=== PATIENT | male | born 1985 | race Asian ===

== ENCOUNTER 2017-04-23 21:33 | Observation (INO) | payer BC ==
[~2017-04-23] VITALS: Ht 162.6 cm; Wt 70.0 kg
[2017-04-23] MEDS ORDERED: ONDANSETRON 8 MG/54 ML D5W IV STA (21:56)
--- NOTE | 2017-04-23 21:58 | EMERGENCY ROOM VISIT NOTE ---
History Report prepared by Veronique: Edwin Cuadra Under the Supervision of: Radha JohnsonO. First contact with patient: 21:40 Chief Complaint: ABDOMINAL PAIN Stated Complaint: ABD PAIN History of Present Illness The patient is a 31 year old male who presents to the Emergency Room with complaints of worsening abdominal pain that started at 1540. He rates his pain as a 10/10 in severity. The patient states that he drank cold water this afternoon and started to experience medial abdominal pain. The patient states that he experienced one episode of vomiting and diarrhea. He states that he noticed blood in the water after he had a bowel movement. The patient states that he did not have dinner because he has not appetite from the pain. He states that he had similar symptoms two years ago. The patient states that he was given pain medication but is unsure what his diagnosis was. The patient denies back pain, fevers, chills, a history of bowel problems, taking medication , abdominal surgery, eating new food, sick contact, and recent travel. Source of History: patient Onset: 1540 Position: abdomen Symptom Intensity: 10/10 Timing: worsening Associated Symptoms: + vomiting, + hematochezia, + diarrhea, No fevers, No chills, No back pain Review of Systems See HPI for pertinent positives & negatives. A total of 10 systems reviewed and were otherwise negative. Past Medical & Surgical The patient reports no pertinent medical or surgical history. Family History Patient reports no known family medical history. Social History Smoking Status: Never Smoker Marital Status: Housing Status: lives with family Occupation Status: employed Current/Historical Medications No Active Prescriptions or Reported Meds Allergies Coded Allergies: No Known Allergies (Unverified , 04/23/17) Physical Exam Vital Signs Date Time Temp Pulse Resp B/P (MAP) Pulse Ox O2 Delivery O2 Flow Rate FiO2 04/24/17 00:16 74 20 112/63 98 Room Air 04/23/17 22:32 37.5 04/23/17 21:35 36.8 79 20 116/65 97 Room Air Physical Exam GENERAL: alert, well appearing, well nourished, no distress, non-toxic EYE EXAM: normal conjunctiva, PERRL and EOM's grossly intact OROPHARYNX: no exudate, no erythema, lips, buccal mucosa, and tongue normal and mucous membranes are moist NECK: supple, no nuchal rigidity, no adenopathy, non-tender LUNGS: Clear to auscultation. Normal chest wall mechanics HEART: no murmurs, S1 normal and S2 normal ABDOMEN: abdomen soft, generalized abdominal discomfort, normo-active bowel sounds, no masses, no rebound or guarding. BACK: Back is symmetrical on inspection and there is no deformity, no midline tenderness, no CVA tenderness. SKIN: no rashes and no bruising UPPER EXTREMITIES: upper extremities are grossly normal. LOWER EXTREMITIES: No pitting edema. NEURO EXAM: Normal sensorium, cranial nerves II-XII grossly intact, normal speech, no gross weakness of arms, no gross weakness of legs. Gross sensation intact. Medical Decision & Procedures ER Provider Diagnostic Interpretation: CT:Per my review, radiologist interpretation. ABDOMEN AND PELVIS CT WITHOUT CONTRAST CT DOSE: 297.13 mGy.cm HISTORY: Right lower quadrant abdominal pain. Vomiting. TECHNIQUE: Multiaxial CT images of the abdomen and pelvis were performed without contrast. A dose lowering technique was utilized adhering to the principles of ALARA. COMPARISON STUDY: None. FINDINGS: Suboptimal evaluation for bowel pathology due to the lack of intravenous and oral contrast. However, there is no evidence for bowel obstruction. The appendix is identified within the right lower quadrant on images 286 through 305. The mid to distal appendix is fluid-filled and distended up to 9 mm. There is minimal periappendiceal fat stranding. Therefore, this is consistent with acute appendicitis. The lung bases are clear. No pneumoperitoneum. No pneumatosis. No evidence for periappendiceal abscess. The unenhanced liver, gallbladder, pancreas, adrenal glands, and kidneys are unremarkable. No retroperitoneal lymphadenopathy. IMPRESSION: Above findings consistent with acute appendicitis. No perforation or abscess identified. Electronically signed by: Michael Quevedo M.D. 04/23/2017 11:11 PM Dictated Date/Time: 04/23/2017 11:05 PM Laboratory Results 04/23/17 22:10 Red Blood Count 5.36, Mean Corpuscular Volume 91.0, Mean Corpuscular Hemoglobin 29.9, Mean Corpuscular Hemoglobin Concent 32.8, Mean Platelet Volume 12.1, Neutrophils (%) (Auto) 91.0, Lymphocytes (%) (Auto) 5.0, Monocytes (%) (Auto) 3.6, Eosinophils (%) (Auto) 0.1, Basophils (%) (Auto) 0.1, Neutrophils # (Auto) 13.73, Lymphocytes # (Auto) 0.75, Monocytes # (Auto) 0.55, Eosinophils # (Auto) 0.02, Basophils # (Auto) 0.01 04/23/17 22:10 Test 04/23/17 22:10 White Blood Count 15.09 K/uL (4.8-10.8) Red Blood Count 5.36 M/uL (4.7-6.1) Hemoglobin 16.0 g/dL (14.0-18.0) Hematocrit 48.8 % (42-52) Mean Corpuscular Volume 91.0 fL (80-100) Mean Corpuscular Hemoglobin 29.9 pg (25-34) Mean Corpuscular Hemoglobin Concent 32.8 g/dl (32-36) Platelet Count 210 K/uL (130-400) Mean Platelet Volume 12.1 fL (7.4-10.4) Neutrophils (%) (Auto) 91.0 % Lymphocytes (%) (Auto) 5.0 % Monocytes (%) (Auto) 3.6 % Eosinophils (%) (Auto) 0.1 % Basophils (%) (Auto) 0.1 % Neutrophils # (Auto) 13.73 K/uL (1.4-6.5) Lymphocytes # (Auto) 0.75 K/uL (1.2-3.4) Monocytes # (Auto) 0.55 K/uL (0.11-0.59) Eosinophils # (Auto) 0.02 K/uL (0-0.5) Basophils # (Auto) 0.01 K/uL (0-0.2) RDW Standard Deviation 42.6 fL (36.4-46.3) RDW Coefficient of Variation 12.9 % (11.5-14.5) Immature Granulocyte % (Auto) 0.2 % Immature Granulocyte # (Auto) 0.03 K/uL (0.00-0.02) Urine Color YELLOW Urine Appearance CLEAR (CLEAR) Urine pH 5.0 (4.5-7.5) Urine Specific [place] 1.028 (1.000-1.030) Urine Protein NEG (NEG) Urine Glucose (UA) NEG (NEG) Urine Ketones TRACE (NEG) Urine Occult Blood NEG (NEG) Urine Nitrite NEG (NEG) Urine Bilirubin NEG (NEG) Urine Urobilinogen NEG (NEG) Urine Leukocyte Esterase NEG (NEG) Anion Gap 6.0 mmol/L (3-11) Est Creatinine Clear Calc Drug Dose 80.0 ml/min Estimated GFR () 101.7 Estimated GFR (Non- 87.7 BUN/Creatinine Ratio 15.7 (10-20) Calcium Level 9.2 mg/dl (8.5-10.1) Total Bilirubin 0.5 mg/dl (0.2-1) Aspartate Amino Transf (AST/SGOT) 23 U/L (15-37) Alanine Aminotransferase (ALT/SGPT) 19 U/L (12-78) Alkaline Phosphatase 109 U/L (45-117) Total Protein 7.8 gm/dl (6.4-8.2) Albumin 4.2 gm/dl (3.4-5.0) Globulin 3.6 gm/dl (2.5-4.0) Albumin/Globulin Ratio 1.2 (0.9-2) Lipase 129 U/L (73-393) Laboratory results per my review. Medications Administered Medications (Trade) Dose Ordered Sig/Rhea Route Start Time Stop Time Status Last Admin Dose Admin Ondansetron HCl (Zofran 8mg Iv) 8 mg NOW STAT IV 04/23/17 21:56 04/23/17 21:57 DC 04/23/17 22:14 8 MG Sodium Chloride 1,000 ml @ 250 mls/hr Q4H STAT IV 04/23/17 22:35 04/24/17 02:34 04/23/17 22:37 250 MLS/HR Sodium Chloride 1,000 ml @ 125 mls/hr Q8H STAT IV 04/23/17 23:20 04/24/17 07:19 04/23/17 23:33 125 MLS/HR Cefoxitin Sodium (Mefoxin IV) 2,000 mg STK-MED ONCE .ROUTE 04/24/17 00:05 04/24/17 00:06 DC 04/24/17 00:15 2,000 MG ED Course 2141: The patient was evaluated in room B12B. A complete history and physical exam was performed. 2155: Ordered Ondansetron HCl 8 mg IV. 2234: Ordered Sodium Chloride 1000 ml 2230: I reevaluated the patient and he is shaking. I updated the patient on his results. Abd pain now localized to the RLQ. 2316: I reevaluated the patient and updated him on his results. I discussed the patients treatment plan and he agreed. The patient will be further evaluated. 2320: Ordered Morphine Sulfate 4 mg IV, Sodium Chloride 1000 ml @ 125 mls/hr IV. 2341: Dr. Gooden, [facility] General Surgery made aware of consult. He understands the patient's condition and agrees to accept the patient. The patient will be further evaluated. Medical Decision Differential diagnoses includes but is not limited to gastritis, peptic ulcer disease, GERD, gallbladder disease, pancreatitis, small bowel obstruction, acute coronary syndrome, pericarditis, ischemic bowel, irritable bowel disease, irritable bowel syndrome, appendicitis, diverticulitis, malignancy, hernia, urinary tract infection, torsion, perforation, trauma, infectious. Patient with evolving symptoms acute appendicitis on the emergency room and CT confirming. No recurrent vomiting on the patient did appear to began having chills/rigors. Vital signs otherwise stable and patient aware of all results was agreeable with plan for surgery evaluation. No evidence of abscess or perforation on the CTA. Medication Reconcilliation Current Medication List: was personally reviewed by me Blood Pressure Screening Patient's blood pressure: Normal blood pressure Consults Time Called: 2340 Consulting Physician: Dr. Gooden, [facility] General Surgery Returned Call: [phone] I discussed the patient's case with Dr. Gooden, [facility] General Surgery. He understands the patient's condition and agrees to accept the patient. The patient will be further evaluated. Impression Primary Impression: Acute appendicitis Additional Impressions: Abdominal pain Vomiting Scribe Attestation The scribe's documentation has been prepared under my direction and personally reviewed by me in its entirety. I confirm that the note above accurately reflects all work, treatment, procedures, and medical decision making performed by me. Departure Information Dispostion Being Evaluated By Surgeon Prescriptions No Active Prescriptions or Reported Meds Referrals No Doctor, Assigned (PCP) Patient Instructions [facility] Problem Qualifiers Primary Impression: Acute appendicitis Acute appendicitis type: with localized peritonitis Qualified Codes: K35.3 - Acute appendicitis with localized peritonitis Additional Impressions: Abdominal pain Abdominal location: right lower quadrant Qualified Codes: R10.31 - Right lower quadrant pain Vomiting Vomiting type: unspecified Vomiting Intractability: non-intractable Nausea presence: with nausea Qualified Codes: R11.2 - Nausea with vomiting, unspecified
[2017-04-23 22:34] LABS: BASO % 0.1 %; BASO ABS # 0.01 K/uL (0-0.2); COMPLETE YES; EOS % 0.1 %; HEMATOCRIT 48.8 % (42-52); IG% 0.2 %; LYMPH ABS # 0.75 K/uL (1.2-3.4); MEAN CORPUSCULAR HEMOGLOBIN 29.9 pg (25-34); MEAN CORPUSCULAR HGB CONC 32.8 g/dl (32-36); MEAN PLATELET VOLUME 12.1 fL (7.4-10.4); MONO % 3.6 %; PLATELET COUNT 210 K/uL (130-400); RED BLOOD COUNT 5.36 M/uL (4.7-6.1); WHITE BLOOD COUNT 15.09 K/uL (4.8-10.8)
[2017-04-23] MEDS ORDERED: SODIUM CHLORIDE 0.9% 1000ML 1,000 ML IV STA ×2 (22:35→23:20)
[2017-04-23 22:36] LABS: BUN/CREATININE RATIO 15.7 (10-20); CALCIUM 9.2 mg/dl (8.5-10.1); CREATININE 1.1 mg/dl (0.60-1.40); POTASSIUM 3.6 mmol/L (3.5-5.1)
[2017-04-23 22:37] LABS: URINE APPEARANCE CLEAR (CLEAR); URINE BILIRUBIN NEG (NEG); URINE COLOR YELLOW; URINE NITRITE NEG (NEG); URINE SPECIFIC GRAVITY 1.028 (1.000-1.030); UROBILINOGEN NEG (NEG)
[2017-04-23 22:39] LABS: ALB/GLOB RATIO 1.2 (0.9-2); MANUAL MICROSCOPIC REQUIRED? NO; REVIEW REQ? NO
--- NOTE | 2017-04-23 23:12 | DIAGNOSTIC IMAGING REPORT ---
ABDOMEN AND PELVIS CT WITHOUT CONTRAST CT DOSE: 297.13 mGy.cm HISTORY: Right lower quadrant abdominal pain. Vomiting. TECHNIQUE: Multiaxial CT images of the abdomen and pelvis were performed without contrast. A dose lowering technique was utilized adhering to the principles of ALARA. COMPARISON STUDY: None. FINDINGS: Suboptimal evaluation for bowel pathology due to the lack of intravenous and oral contrast. However, there is no evidence for bowel obstruction. The appendix is identified within the right lower quadrant on images 286 through 305. The mid to distal appendix is fluid-filled and distended up to 9 mm. There is minimal periappendiceal fat stranding. Therefore, this is consistent with acute appendicitis. The lung bases are clear. No pneumoperitoneum. No pneumatosis. No evidence for periappendiceal abscess. The unenhanced liver, gallbladder, pancreas, adrenal glands, and kidneys are unremarkable. No retroperitoneal lymphadenopathy. IMPRESSION: Above findings consistent with acute appendicitis. No perforation or abscess identified. Electronically signed by: Michael Quevedo M.D. 04/23/2017 11:11 PM Dictated Date/Time: 04/23/2017 11:05 PM
[2017-04-23] MEDS ORDERED: MoRPHine SULFATE 4 MG/ML 1 ML CARP\\VIAL IV STA (23:20)
[2017-04-24] VITALS (9 sets, daily range): BP systolic 92–116; BP diastolic 52–76; PULSE 68–103; TEMP 36.8–37; O2SAT 91–97; Ht 162.6 cm; Wt 70.0 kg
[2017-04-24] MEDS ORDERED: CEFOXITIN SOD 1 GM VIAL ONE (00:05)
--- NOTE | 2017-04-24 00:07 | History and Physical ---
History & Physical Date Apr 24, 2017. History of Present Illness The patient is a 31 year old male with complaints of abdominal pain starting this afternoon which worsened ...now in RLQ. Additional History Hepatic Disease: No Endocrine Disorder: No Kidney Disease: No Hypertension: No Heart Disease: No Bleeding Tendencies: No Infectious Diseases: No Allergies Coded Allergies: No Known Allergies (Unverified , 04/23/17) Home Medications No Active Prescriptions or Reported Meds Physical Examination Skin: warm/dry, no rash Head: normocephalic, atraumatic Neck: supple, trachea midline Respiratory/Chest: no respiratory distress Abdomen / GI: + pertinent finding (+RLQ ttp. +Rovsing) Neurologic/Psych: alert, oriented x [address] proven acute appendicitis Plan of Treatment discussed diagnosis/options discussed risks ( bleeding/infection/dvt/pe/injury to other organs/leaks etc..) questions answered will proceed to OR tonight pt agreeable.
[2017-04-24] MEDS ORDERED: CEFOXITIN 2000MG/60 ML D5W IV STA (00:14)
[2017-04-24] MEDS ORDERED: BUPIVACAINE/EPINEPHRINE 0.5% MPF 1:200,000 10 ML VIAL ONE (01:22)
[2017-04-24] MEDS ORDERED: ONDANSETRON INJ 2 MG/ML 2 ML VIAL IV PRN ×2 (02:00→03:15)
[2017-04-24] MEDS ORDERED: FENTANYL CITRATE INJ 50 MCG/1 ML 2 ML VIAL IV PRN (02:00)
[2017-04-24] MEDS ORDERED: ATROPINE SULFATE 0.1 MG/ML 5ML SYR IV PRN (02:00)
[2017-04-24] MEDS ORDERED: HYDROmorphone INJ 1 MG/ML SYR IV PRN (02:00)
[2017-04-24] MEDS ORDERED: PROMETHAZINE HCL INJ 6.25 MG in SODIUM CHLORIDE 0.9% 50ML 50 ML IV PRN (02:00)
[2017-04-24] MEDS ORDERED: EpHEDrine SULFATE INJ 50 MG/ML AMP IV PRN (02:00)
[2017-04-24] MEDS ORDERED: PROPOFOL IV EMULSION 10 MG/ML 20 ML VIAL IV ONE (02:07)
[2017-04-24] MEDS ORDERED: LIDOCAINE HCL 2% 2 ML VIAL (20MG/ML) ONE (02:07)
[2017-04-24] MEDS ORDERED: FENTANYL CITRATE INJ 50 MCG/1 ML 2 ML VIAL ONE (02:07)
[2017-04-24] MEDS ORDERED: SUCCINYLCHOLINE CHLORIDE 20 MG/ML 10 ML VIAL IV ONE (02:07)
[2017-04-24] MEDS ORDERED: ROCURONIUM BROMIDE 10 MG/ML 5 ML VIAL IV ONE (02:07)
[2017-04-24] MEDS ORDERED: MoRPHine SULFATE PF 1 MG/ML 10 ML AMP/VIAL ONE (02:30)
[2017-04-24] MEDS ORDERED: NEOSTIGMINE METHYLSULFATE 5 MG/5 ML SYR ONE (03:08)
[2017-04-24] MEDS ORDERED: KETOROLAC TROMETHAMINE 30 MG/ML VIAL ONE (03:08)
[2017-04-24] MEDS ORDERED: GLYCOPYRROLATE INJ 0.2 MG/ML VIAL ONE (03:08)
[2017-04-24] MEDS ORDERED: MoRPHine SULFATE 4 MG/ML 1 ML CARP\\VIAL IV PRN (03:15)
[2017-04-24] MEDS ORDERED: ACETAMINOPHEN IV 100 ML IV PRN (03:15)
[2017-04-24] MEDS ORDERED: MoRPHine SULFATE 2 MG/ML CARP IV PRN (03:15)
[2017-04-24] MEDS ORDERED: IBUPROFEN 600 MG TAB PO PRN (03:15)
[2017-04-24] MEDS ORDERED: HYDROCODONE/ACETAMOPHEN 5/325MG TAB PO PRN ×2 (03:15)
--- NOTE | 2017-04-24 03:22 | [facility] Operative Report ---
Operative Report Operative Date Apr 24, 2017. Pre-Operative Diagnosis Acute Appendicitis Post-Operative Diagnosis Same as preop with adhesions Procedure(s) Performed Laparoscopic Appendectomy; enterolysis Surgeon Dr. Gooden [employer] Surgeon(s) none Estimated Blood Loss 5 ml Findings acute appendicitis; right colon adhesions Specimens A. Appendix Anesthesia get Complication(s) None Disposition Recovery Room / PACU Description of Procedure After informed consent was obtained the patient was taken the operating suite placed in supine position. After successful intubation a Aguiar catheter was placed in the left arm was tucked. The abdomen was shaved and sterilely prepped and draped in usual fashion. An infraumbilical incision was then made with an 11 blade scalpel and carried down through the soft tissue using electrocautery. The anterior rectus fascia was opened using electrocautery and 2 #0 Vicryl stay sutures were placed. Peritoneum was elevated with hemostats and incised under direct vision using Metzenbaum scissors. A finger sweep was performed. A 12 mm Hubbard trocar was placed and the abdomen the abdomen was insufflated 18 mmHg. Laparoscope was inserted and the abdomen was examined in 360. Other than some adhesions to the right colon no other gross abnormalities were identified. There was no free fluid. A suprapubic 5 mm port and a left lower quadrant 12 mm port were placed under direct vision. The patient was placed in a Trendelenburg position and slightly airplane to the left. We focused on the right lower quadrant. We immediately found an inflamed appendix. It had a very short mesentery. I was able to transect the mesentery of the appendix as well as the appendix itself with a single brown JENNYFER 60 mm cartridge. We transected it right at its junction with the cecum. I did have to free up some of the cecum with laparoscopic scissors along the lateral reflection to help expose the base of the appendix prior to transecting it. This was done with a sharp scissor lysis. We placed it into an Endo Catch bag and removed the appendix from the camera port site. We did irrigate the pelvis and right lower quadrant. There was adequate hemostasis at the end of the procedure. We did run the small bowel backward for about 6 feet and saw no other gross abnormalities. We then removed all trochars and desufflated the abdomen. The fascia of the camera port as well as left lower quadrant fascia were closed using 0 Vicryl [id number] fashion. All wounds were irrigated and closed using 4-0 Monocryl. Half percent Marcaine was injected around the incisions for postoperative analgesia and skin glue used as a dressing. The patient was awaken extubated and transferred recovery in stable condition I attest to the content of the Intraoperative Record and any orders documented therein. Any exceptions are noted below.
--- NOTE | 2017-04-24 03:37 | Anesthesiology Progress Note ---
Anesthesia Post Op Note Date & Time Apr 24, 2017 at 03:37 Vital Signs Pain Intensity: 0 Vital Signs Past 12 Hours Date Time Temp Pulse Resp B/P (MAP) Pulse Ox O2 Delivery O2 Flow Rate FiO2 04/24/17 03:25 70 12 116/74 (83) 95 Oxymask 5 04/24/17 03:15 36.7 78 12 119/74 (84) 94 Oxymask 5 04/24/17 01:57 75 18 110/61 98 Room Air 04/24/17 01:50 37.5 74 20 112/63 98 04/24/17 00:16 74 20 112/63 98 Room Air 04/23/17 22:32 37.5 04/23/17 21:35 36.8 79 20 116/65 97 Room Air Notes Mental Status: alert / awake / arousable, participated in evaluation Pt Amnestic to Procedure: Yes Nausea / Vomiting: adequately controlled Pain: adequately controlled Airway Patency, RR, SpO2: stable & adequate BP & HR: stable & adequate Hydration State: stable & adequate Anesthetic Complications: no major complications apparent
[2017-04-24] MEDS ORDERED: IV FLUIDS COMPLETED PRN (04:15)
[2017-04-24] MEDS: LACTATED RINGER'S 1000ML 1,000 ML IV SCH ×2 (04:50→10:45)
[2017-04-24] MEDS ORDERED: HYDR-5688 PO (07:26)
--- NOTE | 2017-04-24 07:27 | Discharge Instructions ---
Discharge Instructions Date of Service Apr 24, 2017. Admission Reason for Admission: Acute Appendicitis Discharge Discharge Diagnosis / Problem: appendectomy Discharge Goals Goal(s): Decrease discomfort Activity Recommendations Activity Limitations: as noted below Lifting Limitations: no more than 10 pounds Shower/Bathe: no limitations Driving or Machine Use: resume 3 days after discharge . Instructions / Follow-Up Instructions / Follow-Up Dr. Gooden in 2 weeks, call [phone] to schedule, [facility], [address] [place] [address] Current Hospital Diet Patient's current hospital diet: Clear Liquid Diet Discharge Diet Recommended Diet: Regular Diet Procedures Procedures Performed: Laparoscopic Appendectomy; enterolysis Pending Studies Studies pending at discharge: no School Instructions Return To School: time frame (3-5 days) Medical Emergencies . Who to Call and When: Medical Emergencies: If at any time you feel your situation is an emergency, please call 911 immediately. . Non-Emergent Contact Non-Emergency issues call your: Surgeon Call Non-Emergent contact if: you have a fever, temperature is above 101.5, your pain is not controlled, wound has increased drainage, wound has increased redness, you have any medication questions . "Provider Documentation" section prepared by Luke Zamorano. . VTE Core Measure Inpt VTE Proph given/why not?: SCD's [place] Drug Monitoring Program Search Results: no issues identified
[2017-04-24 09:29] LABS: COMPLETE YES; HEMATOCRIT 44.7 % (42-52); IG% 0.3 %; LYMPH ABS # 0.59 K/uL (1.2-3.4); MEAN CELL VOLUME 91.4 fL (80-100); MEAN CORPUSCULAR HGB CONC 31.8 g/dl (32-36); MEAN PLATELET VOLUME 11.5 fL (7.4-10.4); MONO % 1.6 %; NEUT % 93.1 %; PLATELET COUNT 196 K/uL (130-400); RED BLOOD COUNT 4.89 M/uL (4.7-6.1); WHITE BLOOD COUNT 11.75 K/uL (4.8-10.8)
[2017-04-24] MEDS ORDERED: CEFOXITIN IV 2,000 MG in DEXTROSE 5% 50ML 50 ML IV SCH (10:00)
--- NOTE | 2017-04-24 11:14 | Surgery Progress Note ---
Surgery Progress Note Date of Service Apr 24, 2017. Subjective Post OP Day: 1 Objective Vital Signs: Date Time Temp Pulse Resp B/P (MAP) Pulse Ox O2 Delivery O2 Flow Rate FiO2 04/24/17 07:30 Room Air 04/24/17 07:22 37.0 103 18 98/60 (73) 92 Room Air 04/24/17 06:27 36.9 68 16 110/71 (84) 91 Room Air 04/24/17 05:19 36.8 75 16 116/70 (85) 96 Nasal Cannula 2.0 04/24/17 05:19 Nasal Cannula 1.0 04/24/17 04:43 37.0 69 16 114/76 97 Room Air 04/24/17 04:10 97 Room Air 04/24/17 03:55 36.4 71 16 119/74 (88) 94 Room Air 04/24/17 03:45 79 16 120/80 (98) 94 Room Air 04/24/17 03:35 71 15 124/73 (91) 96 Oxymask 5 04/24/17 03:25 70 12 116/74 (83) 95 Oxymask 5 04/24/17 03:15 36.7 78 12 119/74 (84) 94 Oxymask 5 04/24/17 01:57 75 18 110/61 98 Room Air 04/24/17 01:50 37.5 74 20 112/63 98 04/24/17 00:16 74 20 112/63 98 Room Air 04/23/17 22:32 37.5 04/23/17 21:35 36.8 79 20 116/65 97 Room Air General Appearance: no apparent distress Abdomen: non distended, soft Laboratory Results: Results Past 24 Hours Test 04/23/17 22:10 04/24/17 09:10 Range/Units White Blood Count 15.09 11.75 4.8-10.8 K/uL Red Blood Count 5.36 4.89 4.7-6.1 M/uL Hemoglobin 16.0 14.2 14.0-18.0 g/dL Hematocrit 48.8 44.7 42-52 % Mean Corpuscular Volume 91.0 91.4 80-100 fL Mean Corpuscular Hemoglobin 29.9 29.0 25-34 pg Mean Corpuscular Hemoglobin Concent 32.8 31.8 32-36 g/dl Platelet Count 210 196 130-400 K/uL Mean Platelet Volume 12.1 11.5 7.4-10.4 fL Neutrophils (%) (Auto) 91.0 93.1 % Lymphocytes (%) (Auto) 5.0 5.0 % Monocytes (%) (Auto) 3.6 1.6 % Eosinophils (%) (Auto) 0.1 0.0 % Basophils (%) (Auto) 0.1 0.0 % Neutrophils # (Auto) 13.73 10.94 1.4-6.5 K/uL Lymphocytes # (Auto) 0.75 0.59 1.2-3.4 K/uL Monocytes # (Auto) 0.55 0.19 0.11-0.59 K/uL Eosinophils # (Auto) 0.02 0.00 0-0.5 K/uL Basophils # (Auto) 0.01 0.00 0-0.2 K/uL RDW Standard Deviation 42.6 43.5 36.4-46.3 fL RDW Coefficient of Variation 12.9 13.0 11.5-14.5 % Immature Granulocyte % (Auto) 0.2 0.3 % Immature Granulocyte # (Auto) 0.03 0.03 0.00-0.02 K/uL Urine Color YELLOW Urine Appearance CLEAR CLEAR Urine pH 5.0 4.5-7.5 Urine Specific [place] 1.028 1.000-1.030 Urine Protein NEG NEG Urine Glucose (UA) NEG NEG Urine Ketones TRACE NEG Urine Occult Blood NEG NEG Urine Nitrite NEG NEG Urine Bilirubin NEG NEG Urine Urobilinogen NEG NEG Urine Leukocyte Esterase NEG NEG Sodium Level 139 136-145 mmol/L Potassium Level 3.6 3.5-5.1 mmol/L Chloride Level 104 98-107 mmol/L Carbon Dioxide Level 29 21-32 mmol/L Anion Gap 6.0 3-11 mmol/L Blood Urea Nitrogen 17 7-18 mg/dl Creatinine 1.10 0.60-1.40 mg/dl Est Creatinine Clear Calc Drug Dose 80.0 ml/min Estimated GFR () 101.7 Estimated GFR (Non- 87.7 BUN/Creatinine Ratio 15.7 10-20 Random Glucose 139 70-99 mg/dl Calcium Level 9.2 8.5-10.1 mg/dl Total Bilirubin 0.5 0.2-1 mg/dl Aspartate Amino Transf (AST/SGOT) 23 15-37 U/L Alanine Aminotransferase (ALT/SGPT) 19 12-78 U/L Alkaline Phosphatase 109 45-117 U/L Total Protein 7.8 6.4-8.2 gm/dl Albumin 4.2 3.4-5.0 gm/dl Globulin 3.6 2.5-4.0 gm/dl Albumin/Globulin Ratio 1.2 0.9-2 Lipase 129 73-393 U/L Microbiology Results 04/23/17 Blood Culture, Received Pending 04/23/17 Blood Culture, Received Pending Assessment & Plan POD 1/2 has not voided yet mild nausea some discomfort from previous ho only a couple hours out of surgery will re-eval later today for possible d/c
--- NOTE | 2017-04-24 13:11 | Surgery Progress Note ---
Surgery Progress Note Date of Service Apr 24, 2017. Subjective + feeling well, + ambulating, + pain controlled, No complaints, No nausea Spoke with nurse, Tiffany, who stated that patient has still yet to void. Noted that patient felt dizzy and weak earlier in the morning when getting out of bed. Patient sitting up comfortably in bed- and son present. Patient voided approximately 10cc into bedside urinal- was getting out of bed when I first entered the room to urinate in bathroom. Patient states that he is no longer dizzy when standing. No other complaints at this time. Rates post-op pain 08/26. Objective Vital Signs: Date Time Temp Pulse Resp B/P (MAP) Pulse Ox O2 Delivery O2 Flow Rate FiO2 04/24/17 11:16 36.9 81 16 95/57 (70) 93 Room Air 04/24/17 07:30 Room Air 04/24/17 07:22 37.0 103 18 98/60 (73) 92 Room Air 04/24/17 06:27 36.9 68 16 110/71 (84) 91 Room Air 04/24/17 05:19 36.8 75 16 116/70 (85) 96 Nasal Cannula 2.0 04/24/17 05:19 Nasal Cannula 1.0 04/24/17 04:43 37.0 69 16 114/76 97 Room Air 04/24/17 04:10 97 Room Air 04/24/17 03:55 36.4 71 16 119/74 (88) 94 Room Air 04/24/17 03:45 79 16 120/80 (98) 94 Room Air 04/24/17 03:35 71 15 124/73 (91) 96 Oxymask 5 04/24/17 03:25 70 12 116/74 (83) 95 Oxymask 5 04/24/17 03:15 36.7 78 12 119/74 (84) 94 Oxymask 5 04/24/17 01:57 75 18 110/61 98 Room Air 04/24/17 01:50 37.5 74 20 112/63 98 04/24/17 00:16 74 20 112/63 98 Room Air 04/23/17 22:32 37.5 04/23/17 21:35 36.8 79 20 116/65 97 Room Air Abdomen: non tender, soft Incision(s): clean, dry, intact, findings (+dermabond) Laboratory Results: Results Past 24 Hours Test 04/23/17 22:10 04/24/17 09:10 Range/Units White Blood Count 15.09 11.75 4.8-10.8 K/uL Red Blood Count 5.36 4.89 4.7-6.1 M/uL Hemoglobin 16.0 14.2 14.0-18.0 g/dL Hematocrit 48.8 44.7 42-52 % Mean Corpuscular Volume 91.0 91.4 80-100 fL Mean Corpuscular Hemoglobin 29.9 29.0 25-34 pg Mean Corpuscular Hemoglobin Concent 32.8 31.8 32-36 g/dl Platelet Count 210 196 130-400 K/uL Mean Platelet Volume 12.1 11.5 7.4-10.4 fL Neutrophils (%) (Auto) 91.0 93.1 % Lymphocytes (%) (Auto) 5.0 5.0 % Monocytes (%) (Auto) 3.6 1.6 % Eosinophils (%) (Auto) 0.1 0.0 % Basophils (%) (Auto) 0.1 0.0 % Neutrophils # (Auto) 13.73 10.94 1.4-6.5 K/uL Lymphocytes # (Auto) 0.75 0.59 1.2-3.4 K/uL Monocytes # (Auto) 0.55 0.19 0.11-0.59 K/uL Eosinophils # (Auto) 0.02 0.00 0-0.5 K/uL Basophils # (Auto) 0.01 0.00 0-0.2 K/uL RDW Standard Deviation 42.6 43.5 36.4-46.3 fL RDW Coefficient of Variation 12.9 13.0 11.5-14.5 % Immature Granulocyte % (Auto) 0.2 0.3 % Immature Granulocyte # (Auto) 0.03 0.03 0.00-0.02 K/uL Urine Color YELLOW Urine Appearance CLEAR CLEAR Urine pH 5.0 4.5-7.5 Urine Specific [place] 1.028 1.000-1.030 Urine Protein NEG NEG Urine Glucose (UA) NEG NEG Urine Ketones TRACE NEG Urine Occult Blood NEG NEG Urine Nitrite NEG NEG Urine Bilirubin NEG NEG Urine Urobilinogen NEG NEG Urine Leukocyte Esterase NEG NEG Sodium Level 139 136-145 mmol/L Potassium Level 3.6 3.5-5.1 mmol/L Chloride Level 104 98-107 mmol/L Carbon Dioxide Level 29 21-32 mmol/L Anion Gap 6.0 3-11 mmol/L Blood Urea Nitrogen 17 7-18 mg/dl Creatinine 1.10 0.60-1.40 mg/dl Est Creatinine Clear Calc Drug Dose 80.0 ml/min Estimated GFR () 101.7 Estimated GFR (Non- 87.7 BUN/Creatinine Ratio 15.7 10-20 Random Glucose 139 70-99 mg/dl Calcium Level 9.2 8.5-10.1 mg/dl Total Bilirubin 0.5 0.2-1 mg/dl Aspartate Amino Transf (AST/SGOT) 23 15-37 U/L Alanine Aminotransferase (ALT/SGPT) 19 12-78 U/L Alkaline Phosphatase 109 45-117 U/L Total Protein 7.8 6.4-8.2 gm/dl Albumin 4.2 3.4-5.0 gm/dl Globulin 3.6 2.5-4.0 gm/dl Albumin/Globulin Ratio 1.2 0.9-2 Lipase 129 73-393 U/L Microbiology Results 04/23/17 Blood Culture, Received Pending 04/23/17 Blood Culture, Received Pending Assessment & Plan Post-Op 10hrs- Patient voided- was not dizzy or lightheaded when ambulating to restroom. Ok to discharge. Discussed post-operative instructions with patient. Patient to follow-up in clinic in 1-2 weeks.
--- NOTE | 2017-04-27 19:21 | DISCHARGE SUMMARY ---
PRIMARY DISCHARGE DIAGNOSIS: Acute appendicitis. PROCEDURE PERFORMED: Laparoscopic appendectomy. HOSPITAL COURSE: The patient is a 31-year-old male who presented to the Emergency Department overnight complaining of abdominal pain that began earlier that afternoon. His white count was 15,000. CT was consistent with acute appendicitis. He was taken to the operating room overnight for laparoscopic appendectomy. Procedure was well tolerated. He was transferred to the surgical floor. He was not taking any analgesics. By the afternoon, he was tolerating diet and was able to void. He was stable for discharge. His white count improved to 11,000. His abdomen was soft. Incisions were dry. DISCHARGE INSTRUCTIONS: Discharge home. Follow up with Dr. Gooden in 2 weeks. DISCHARGE MEDICATIONS: [place] 1-2 tablets every 4 hours as needed for pain. MTDD
== END 2017-04-24 17:50 | disposition home or self-care (01) ==
LOC: C.EDB 21:35 → C.MSW 04-24 03:15
PROVIDERS: ADMIT Surgery; ATTEND Surgery
DX: K35.80 Unspecified acute appendicitis (principal)

== ENCOUNTER 2017-08-04 12:21 | Emergency (ER) | payer OTHER, BC ==
[~2017-08-04] VITALS: Ht 165.1 cm; Wt 69.7 kg
[~2017-08-04 12:21] MED LIST: HYDR-5688 PO
[2017-08-04 12:23] VITALS: TEMP 36.6; Ht 165.1 cm; Wt 69.7 kg
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
[2017-08-04 14:33] VITALS: BP 96/68; PULSE 102; O2SAT 97
== END 2017-08-04 14:32 | disposition home or self-care (01) ==
LOC: C.EDB 12:24 → C.EDD 14:32
DX: R10.9 Unspecified abdominal pain (principal); V47.5XXA Car driver injured in collision with fixed or stationary object in traffic accident, initial encounter; Y93.89 Activity, other specified; Y99.8 Other external cause status; Y92.488 Other paved roadways as the place of occurrence of the external cause

== ENCOUNTER → 2017-09-01 | Outpatient (CLI) | payer OTHER, BC ==
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
== END | disposition home or self-care (01) ==
LOC: C.RAD1850 10:51
PROVIDERS: ATTEND Family Medicine
DX: R10.9 Unspecified abdominal pain (principal)

== ENCOUNTER → 2018-03-18 | Outpatient (CLI) | payer OTHER ==
--- NOTE | 2018-03-18 09:27 | DIAGNOSTIC IMAGING REPORT ---
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 Gallbladder is unremarkable without cholelithiasis, wall thickening or pericholecystic fluid. Common bile duct is normal, 4 mm. Increased echogenicity of the liver with poor through transmission. No focal hepatic mass lesions or intrahepatic biliary ductal dilation identified. Imaged right kidney is unremarkable without hydronephrosis. IMPRESSION: 1. Increased echogenicity of the liver suggests hepatic steatosis. 2. No cholelithiasis or sonographic evidence of acute cholecystitis. 3. No biliary ductal dilation. The above report was generated using voice recognition software. It may contain grammatical, syntax or spelling errors. Electronically signed by: Zack Mccauley M.D. 03/18/2018 9:26 AM Dictated Date/Time: 03/18/2018 9:24 AM
== END | disposition home or self-care (01) ==
LOC: C.ULTRBC 08:38
PROVIDERS: ATTEND Family Medicine
DX: B18.1 Chronic viral hepatitis B without delta-agent (principal)